=== PATIENT | female | born 1995 | race Caucasian/White ===

== ENCOUNTER 2019-06-25 16:25 | Inpatient (IN) | payer OTHER ==
[~2019-06-25] VITALS: Ht 152.4 cm; Wt 67.8 kg
--- NOTE | 2019-06-25 17:05 | NUR ---
PT PRESENTS TO ED BIBA WITH C/O OF RIGHT SIDED ABDOMINAL PAIN STARTING TODAY. PT STS SHE HAS HAD SIMILAR PAIN IN THE PAST AND WAS SEEN AT [facility] X1 MONTH AGO. PT STS PAIN STARTED A COUPLE HRS AFTER EATING FRIED CHICKEN AND HAVING 1 EPISODE OF DIARRHEA. PER EMS PT WAS FOUND AT HOME WITH PAIN 10/10 ACTING RESTLESS AND DIAPHORETIC DUE TO PAIN. PER EMS THEY GAVE PT 100MCG TOTAL OF FENTANYL AND PT "BEGAN TO LOOK BETTER" AND WAS ABLE TO ANSWER QUESTIONS. PT STS PT IS MOSTLY IN RUQ OF ABDOMEN AND RADIATES TO MID EPIGASTRIC AND BACK SIDE. PT DENIES FEVER, CHEST PAIN, OR DIZZINESS. PT AAOX4, RESP E/U, NO ACUTE DISTRESS NOTED AT THIS TIME. PT VSS, ON FULL CM, WILL CONTINUE TO MONITOR.
[2019-06-25 17:16] LABS: BASOPHIL % 0.9 % (0-2); PLATELET COUNT 307 x10^3mcL (130-400); RED CELL DISTRIBUTION WIDTH 13.4 % (11.5-14.5)
[2019-06-25 17:21] LABS: CALCIUM 8.1 mg/dL (8.5-10.1); CARBON DIOXIDE 29.9 mmol/L (21-32); CHLORIDE SERUM 107 mmol/L (98-107); CREATININE SERUM 0.7 mg/dL (0.6-1.0); GFR1 > 60 mL/min; GLUCOSE SERUM 103 mg/dL (74-106); POTASSIUM SERUM 3.9 mmol/L (3.5-5.1); SODIUM SERUM 145 mmol/L (136-145)
[2019-06-25 17:28] LABS: ALBUMIN 3.6 g/dL (3.4-5.0); ALKALINE PHOSPHATASE 132 U/L (46-116); ALT/SGPT 41 U/L (14-59); AST/SGOT 85 U/L (15-37); BILIRUBIN DIRECT 0.17 mg/dL (0.0-0.2); BILIRUBIN TOTAL 0.3 mg/dL (0.20-1.00); LIPASE 122 IU/L (73-393); TOTAL PROTEIN, SERUM 7.6 g/dL (6.4-8.2)
--- NOTE | 2019-06-25 17:40 | NUR ---
ULTRA SOUND AT BEDSIDE.
--- NOTE | 2019-06-25 19:05 | NUR ---
REPORT GIVEN TO ZAFAR PATEL TO ASSUME CARE OF PT.
--- NOTE | 2019-06-25 19:19 | NUR ---
PT MEDICATED PER EMAR. PT VITALS ARE STABLE PT STATES THAT HER PAIN DECREASED FROM A 6/10 TO A 0/10 AFTER SHE RECIEVED HER PAIN MEDICATION. PT IS A/O X4. NO ACUTE DISTRESS NOTED. FAMILY AT BEDSIDE.
--- NOTE | 2019-06-25 20:32 | NUR ---
TRISTIN FROM [employer] CALLED TO INFORM ME THAT PT WILL RECIEVE US AT 0800 TOMORROW MORNING. SHE STATES THAT PT NEEDS TO BE KEPT NPO AND NO OPIOIDS AFTER MIDNIGHT. WILL PASS ON TO MED/SURG NURSE.
--- NOTE | 2019-06-25 21:27 | NUR ---
REPORT GIVEN TO TAMMY STEPHEN TO ASSUME CARE OF PT. TAMMY MADE AWARE PT NEED TO BE KEPT NPO AND NO OPIOIDS PAST MIDNIGHT TONIGHT FOR HER ULTRA SOUND AT 0800 TOMORROW MORNING.
--- NOTE | 2019-06-25 21:35 | NUR ---
RECEIVED PT FROM ED VIA WHEELCHAIR, CAME IN DUE TO ABDOMINAL PAIN. AAOX4. DENIES HEADACHE/DIZZINESS. NO SOB NOTED, LUNG SOUNDS CTA. DENIES CHEST PAIN/PRESSURE. DENIES ABDOMINAL PAIN AT THIS TIME. C/O NAUSEA. IV SITE PATENT AND INTACT. SIDE RAILS UPX2. CALL LIGHT ON REACH. ENDORSED TO PRIMARY NURSE TAMMY FOR CONTINUITY OF CARE
[2019-06-25 21:44] VITALS: BP 110/74
[2019-06-25 21:57] VITALS: Ht 152.4 cm; Wt 67.8 kg
--- NOTE | 2019-06-25 22:28 | NUR ---
RECEVED PT FROM [facility] , PT'S ON BED AAOX4 DENY NAUSEA/ABD PAIN AT THE MOMENT , ABD SOFT NON-TENDER TO TOUCH BS ACTIVE X4, LUNG SOUNDS CTA , HL TO RIGHT HAND INTACT FLUSHING WELL . CALL LIGHT WITHIN PT'S REACH , WILL CON'T TO MONITOR AND ASSIST [PT WITH CARE .
[2019-06-26 05:03] VITALS: BP 113/61
--- NOTE | 2019-06-26 06:02 | NUR ---
POST ZOFRAN PT DENY N/V AT THE MOMENT , PIV INTACT INFUSING WELL .
--- NOTE | 2019-06-26 06:22 | NUR ---
I HAVE REVIEWED THE DATA COLLECTION BY DIRECTOR MEDICAL SURGICAL (NAME):TAMMY GOTTLIEB ENTERED ON (DATE/TIME): I CONCUR WITH THE DATA AND ANY EXCEPTIONS OR COMMENTS ARE LISTED BELOW:
[2019-06-26 07:27] LABS: BASOPHIL % 0.2 % (0-2); PLATELET COUNT 270 x10^3mcL (130-400); RED CELL DISTRIBUTION WIDTH 13.6 % (11.5-14.5)
--- NOTE | 2019-06-26 07:44 | NUR ---
PT LYING IN BED A/A/ OX4. RESPIRATIONS EVEN/ UNLABORED, ON RA. PT NPO IVF RUNNING AT 80ML/HR. NO REDNESS/ SWELLING AT IV SITE. BED IN LOW POSITION, CALL LIGHT IN REACH, SIDE RAILS UP X 2. WILL CONTINUE TO MONITOR
[2019-06-26 07:49] LABS: ALBUMIN 3.4 g/dL (3.4-5.0); ALKALINE PHOSPHATASE 232 U/L (46-116); ALT/SGPT 930 U/L (14-59); BILIRUBIN TOTAL 2.26 mg/dL (0.20-1.00); CARBON DIOXIDE 27.3 mmol/L (21-32); CHLORIDE SERUM 106 mmol/L (98-107); CREATININE SERUM 0.6 mg/dL (0.6-1.0); GFR1 > 60 mL/min; GLUCOSE SERUM 78 mg/dL (74-106); MAGNESIUM 2.1 mg/dL (1.8-2.4); POTASSIUM SERUM 3.7 mmol/L (3.5-5.1); SODIUM SERUM 144 mmol/L (136-145); TOTAL PROTEIN, SERUM 7.7 g/dL (6.4-8.2)
[2019-06-26 07:52] LABS: AST/SGOT 1581 U/L (15-37)
--- NOTE | 2019-06-26 08:06 | NUR ---
PT WENT DOWN FOR HIDA SCAN BY W/C, IN NO ACUTE DISTRESS
--- NOTE | 2019-06-26 10:25 | NUR ---
PT RETURNED TO FLOOR, IN NO ACUTE DISTRESS. NO CO PAIN. BREATHING EQUAL/ UNLABORED, ON RA, IVF RUNNING AT 80ML/HR. C/O MILD ACID REFLUX, ENCOURAGED TO SIT UP. HIDA SCAN ONGOING, PT VERBALIZED UNDERSTANDING. BED IN LOW POSITION, CALL LIGHT IN REACH, WILL CONTINUE TO MONITOR
--- NOTE | 2019-06-26 11:41 | NUR ---
PT SITTING UP IN BED, AWAKE/ALERT/ OX4. BREATHING EQUAL UNLABORED. NO ACUTE DISTRESS NOTED. IVF RUNNING AT 80ML/HR. NO REDNESS/SWELLING AT IV SITE. BED IN LOW POSITION, CALL LIGHT IN REACH. WILL CONTINUE TO MONITOR
--- NOTE | 2019-06-26 12:32 | NUR ---
CALLED AND REPORTED TO FOR HIDA SCAN RESULT. PER DR. MELO, SHE WILL SCHEDULE FOR SURGERY EITHER TODAY OR TOMORROW. WILL CONT. TO KEEP PATIENT NPO.
--- NOTE | 2019-06-26 15:01 | NUR ---
PT LYING IN BED, EYES CLOSED. AOUSABLE TO VOICE. BREATHING EQUAL/ UNLABORED ON RA. IVF RUNNING AT 80ML/HR. BED IN LOW POSITION, CALL LIGHT IN REACH, FAMILY AT BEDSIDE. WILL CONTINUE TO MONITOR
--- NOTE | 2019-06-26 16:20 | NUR ---
PT WENT DOWN TO OR FOR SURGERY. PT IN NO ACUTE DISTRESS AT THIS TIME
[2019-06-26 16:23] VITALS: BP 118/71
--- NOTE | 2019-06-26 18:43 | NUR ---
NURSING CO-SIGN THE DOCUMENTATION ENTERED BY THE RN HAS BEEN REVIEWED. REVIEWED/CO-SIGNED BY: Katheryn Ortiz DOCUMENTATION DONE BY: IKER FAULKNER
[2019-06-26 18:55] VITALS: BP 123/60
--- NOTE | 2019-06-26 19:00 | NUR ---
PT RETURNED TO FLOOR FROM SURGERY. PT DROWSY/ AROUSABLE TO VOICE. VSS. C/O PAIN 2/10 TO ABD AND MILD NAUSEA. PT HAS 4 ABD INCISIONS WITH BAINDAIDS AND 1 PAUL DRAIN TO R SIDE OF ABD/ SMALL AMOUNT OF SANGUINOUS DRAINAGE. BREATHING EQUAL/ UNLABORED ON 2LPM VIA NC. IVF RUNNING AT 80ML/HR. NO REDNESS/ SWELLING AT IV SITE. FAMILY AT BED SIDE, CALL LIGHT IN REACH, BED IN LOW POSITION. WILL ENDORSE TO ON COMING NURSE
[2019-06-26 19:34] VITALS: BP 123/75
--- NOTE | 2019-06-26 20:00 | NUR ---
RECEIVED PT IN BED, A/OX4. RESP. EVEN AND UNLABORED. LUNG SOUNDS CLEAR 02 AT 2L/MIN VIA NC, SAT. 98%. NO ACUTE DISTRESS NOTED. AFEBRILE AND VITAL SIGNS STABLE. DENIES CHEST PAIN OR DISCOMFORT AT THIS TIME. ABD. SOFT, NON DISTENDED, ABD. INCISIONS WITH BANDAIDS, DRY AND INTACT. PAUL DRAIN INTACT AND DRAINING BLOODY OUTPUT. IVF, NS AT 80ML/HR, INTACT AND INFUSING VIA RT HAND, SITE CLEAR. CALL LIGHT WITHIN REACH.WILL CONTINUE TO MONITOR.
--- NOTE | 2019-06-26 20:15 | NUR ---
COMPLAINED OF NAUSEA, MEDICATED WITH ZOFRAN IV ORDERED. WILL CONTINUE TO MONITOR.
--- NOTE | 2019-06-26 23:13 | NUR ---
COMPLAINED OF ABD. PAIN, 6/10, MEDICATED WITH MORPHINE SULFATE ORDERED. WILL CONTINUE TO MONITOR.
--- NOTE | 2019-06-27 00:17 | NUR ---
PT STATES PAIN RELIEF. WILL CONTINUE TO MONITOR.
--- NOTE | 2019-06-27 02:29 | NUR ---
RESTING QUIETLY, WITH EYES CLOSED, APPEARS ASLEEP, EASILY AROUSABLE . RESP. EVEN AND UNLABORED. NO ACUTE DISTRESS NOTED. IVF INTACT AND INFUSING WELL, SITE CLEAR. CALL LIGHT WITHIN REACH. WILL CONTINUE TO MONITOR.
--- NOTE | 2019-06-27 04:30 | NUR ---
COMPLAINED OF ABD. INCISION SITES PAIN, 04/18, REQUESTING PAIN MED, MEDICATED WITH MORPHINE SULFATE IV ORDERED. WILL CONTINUE TO MONITOR.
[2019-06-27 05:18] VITALS: BP 111/67
--- NOTE | 2019-06-27 06:10 | NUR ---
AFEBRILE AND VITAL SIGNS STABLE. RESP. EVEN AND UNLABORED. ON ROOM AIR AT THIS TIME.NO ACUTE DISTRESS NOTED. PT STATES PAIN RELIEF AT THIS TIME. ABD. INCISION SITES WITH BANDAIDS, DRY AND INTACT. PAUL DRAIN INTACT AND PATENT. 20MLS OUPUT NOTED. AMBULATING TO THE BATHROOM, VOIDING FREELY. NO BM NOTED. KPET COMFORTABLE.IVF INTACT AND INFUSING WELL, SITE CLEAR. NPO SINCE MN MAINTAINED FOR POSSIBLE PROCEDURE TODAY. CALL LIGHT WITHIN REACH. WILL CONTINUE TO MONITOR.
[2019-06-27 07:26] LABS: BASOPHIL % 0.1 % (0-2); PLATELET COUNT 249 x10^3mcL (130-400); RED CELL DISTRIBUTION WIDTH 13.4 % (11.5-14.5)
[2019-06-27 07:39] LABS: ALKALINE PHOSPHATASE 320 U/L (46-116); AST/SGOT 676 U/L (15-37); BILIRUBIN TOTAL 5.6 mg/dL (0.20-1.00); CALCIUM 8.4 mg/dL (8.5-10.1); CHLORIDE SERUM 104 mmol/L (98-107); CREATININE SERUM 0.6 mg/dL (0.6-1.0); GFR1 > 60 mL/min; GLUCOSE SERUM 88 mg/dL (74-106); LIPASE 85 IU/L (73-393); POTASSIUM SERUM 4.7 mmol/L (3.5-5.1); SODIUM SERUM 138 mmol/L (136-145); TOTAL PROTEIN, SERUM 6.7 g/dL (6.4-8.2)
[2019-06-27 07:42] LABS: ALT/SGPT 1065 U/L (14-59)
--- NOTE | 2019-06-27 08:25 | NUR ---
At 0710, Recieved patient from shift superintendent caustic cresylate nurse. Awake, Alert, and Oriented. IV infusing N/S at 80 ml/hour. At 0730 is when she complained of abdominal pain and nausea. Medicated with zofran as per emar. Will medicate for pain in one hour. Abdominal dressings dry and intact. PAUL drain- patent. Seen by Dr. Mazariegos. Dr. Cardenas to follow up for further treatment. Patient remains NPO.
[2019-06-27 08:53] VITALS: BP 115/70
--- NOTE | 2019-06-27 10:36 | NUR ---
AT 0930 - REPORTS SOME RELIEF OF ABDOMINAL PAIN AFTER RECEIVING MORPHINE. STIL SOME NAUSEA. 1020 - CONSENT FOR ERCP SIGNED BY PATIENT. REPORT GEIVEN TO RN IN SURGERY. PATIENT WAS SEEN BY DR OSPINA. AT 1035 - TAKEN TO SURGERY FOR ERCP.
--- NOTE | 2019-06-27 12:27 | NUR ---
PATIENT RETURNED FROM OR AT 12:20 FOLLOWING ERCP, SPHINCTOROCTOMY, AND BALLOON SWEEP WITH STONE EXTRACTION UNDER GENERAL ANESTHESIA. PATIENT IS AWAKE, ALERT, AND ORIENTED. VITAL SIGNS WITHIN NORMAL LIMITS. OXYGEN SATURATION 94% ON ROOM AIR. PATIENT RECIEVED ZOFRAN IN RECOVERY ROOM FOR COMPLAINT OF NAUSEA. MAY COMMENCE FULL LIQUID DIET ORDERED.
[2019-06-27 12:30] VITALS: BP 111/71
--- NOTE | 2019-06-27 15:59 | NUR ---
PATIENT RESTING QUIETLY. NO C/O PAIN AT THIS TIME. IV INFUSING LACTATED RINGERS AT 125 ML/HR. SPOUSE AT BEDSIDE WITH PATIENT'S BABY IN ROOM ALSO.
[2019-06-27 16:28] VITALS: BP 113/68
--- NOTE | 2019-06-27 17:51 | NUR ---
Vital signs are stable, patient is afebril, patient has been provided with incentive spirometer and instructed on use by RT, encouraged to use every hour. Patient encouraged to ambulate, has been ambulating to bathroom only, but encouraged to walk in hallway. No further complaints of nausea. Abdominal dressings remain dry. PAUL drain is draining serosanganous fluid with a 20 ml output this shift. Will endorse care to night nurse.
--- NOTE | 2019-06-27 19:30 | NUR ---
PT IS A/O x4. ON MED SURG. DENIES ANY CHEST PAIN OR PRESSURE. PULSES ARE PERSENT. NO EDEMA NOTED. LUNGS CLEAR IN ALL FEILD. ON RA, DENIES ANY SOB. EQAUL CHEST RISE AND FALL. NO SIGN OF RESP DISTRESS. BOWEL SOUNDS ARE PRESENT. ABD INCISIONS FROM [employer] [place] YESTERDAY ARE CLEAN AND INTACT. PAUL DRAIN NOTED ON R SIDE OF THE ABD. SUCTION IN PLACE WITH NO DRAINAGE NOTED. PT COMPLAINS OF NAUSEA, WILL GIVE MED PER EMAR.DENIES ANY PAIN AT THIS TIME. IV ON RH IS INTACT AND PATENT. NO SIGN OF INFILTRATION OR INFLAMATION NOTED. FAMILY AT BEDSIDE. BED IS AT LOWEST SETTING. CALL LIGHT WITHIN REACH. WILL CONTINUE TO MONITOR.
[2019-06-27 20:29] VITALS: BP 108/61
--- NOTE | 2019-06-28 02:32 | NUR ---
PT IS RESTING IN BED WITH BOTH EYES CLOSED. BREATHING EVEN AND UNLABORED. NO SIGN OF DISTRESS NOTED. IV INTACT AND PATENT. BED IS AT LOWEST SETTING. CALL LIGHT WITHIN REACH. WILL CONTINUE TO MONTIOR.
[2019-06-28 05:07] VITALS: BP 113/66
--- NOTE | 2019-06-28 06:13 | NUR ---
PT IS RESTING IN BED WITH BOTH EYES CLOSED. NO SIGN OF DISTRESS NOTED. NO ACUTE EVENT OCCURED AT NIGHT. BED IS AT LOWEST SETTING. CALL LIGHT WITHIN REACH. WILL ENDORSE TO AM NURSE.
--- NOTE | 2019-06-28 07:58 | NUR ---
Recieved patient from night nurse. Patient was observed sleeping. Patient not currently complaining of any pain or nausea. IV infusing LR at 125 ml/hour. Continuing to monitor patient.
[2019-06-28 08:24] VITALS: BP 106/71
--- NOTE | 2019-06-28 10:56 | NUR ---
AT 0840 -SPOKE WITH PATIENT ABOUT IMPORTANCE OF AMBULATION, USE OF INSNETIVE SPIROMETER AND SCDS IN PREVENTION OF POST-OP COMPLICATIONS. PATIENT TAKING PO LIQUIDS. NO VOMITING TODAY. DECLINED PAIN MEDICATION AT THIS TIME.
[2019-06-28 11:38] LABS: ALKALINE PHOSPHATASE 291 U/L (46-116); ALT/SGPT 627 U/L (14-59); AST/SGOT 171 U/L (15-37); BILIRUBIN TOTAL 1.24 mg/dL (0.20-1.00); CARBON DIOXIDE 29.6 mmol/L (21-32); CHLORIDE SERUM 105 mmol/L (98-107); CREATININE SERUM 0.6 mg/dL (0.6-1.0); GFR1 > 60 mL/min; GLUCOSE SERUM 86 mg/dL (74-106); POTASSIUM SERUM 3.4 mmol/L (3.5-5.1); SODIUM SERUM 142 mmol/L (136-145); TOTAL PROTEIN, SERUM 6.4 g/dL (6.4-8.2)
[2019-06-28 11:41] LABS: ALBUMIN 2.8 g/dL (3.4-5.0)
[2019-06-28 11:56] LABS: PLATELET COUNT 240 x10^3mcL (130-400); RED CELL DISTRIBUTION WIDTH 13.6 % (11.5-14.5)
[2019-06-28 14:08] VITALS: BP 106/71
--- NOTE | 2019-06-28 14:32 | NUR ---
AT 1340 - PATIENT AMBULATED IN HALLWAY. TOLERATED WELL. NO C/O PAIN OR NAUSEA. AT 1350 - PAUL DRAIN REMOVED INTACT AFTER REMOVAL OF HOLDING SUTURE. DRESSINGS TO INCISIONS CHANGED. PHOTO DOCUMENTED. PATIENT INSTRUCTED IN CARE OF INCISIONS. AT 1400 - RECEIVED DISCHARGED ORDER. IV INFUSION DISCONTINUED AND IV CATHETER REMOVED INTACT.
[2019-06-28] MEDS ORDERED: NORCO1 TA2 PO (14:36)
[2019-06-28] MEDS ORDERED: KETOROLAC TROME10 MG PO (14:36)
--- NOTE | 2019-06-28 15:24 | NUR ---
AT 1500 - PRINTED DISCHARGE INSTRUCTIONS GIVEN AND EXPLAPINED TO PATIENT. PRESCRIPTION PROVIDED. AT 1520 - DISCHARGED HOME WITH SISTER. TAKEN TO DISCHARGE OFFICE IN WHEELCHAIR BY FERNANDO.
== END 2019-06-28 15:22 | disposition home or self-care (01) | DRG 419 ==
LOC: ED 16:25 → MU 20:33
PROVIDERS: Internal Medicine; Internal Medicine Gastroenterology; Student in an Organized Health Care Education/Training Program; Surgery; ADMIT Internal Medicine Pulmonary Disease
PROC: BF10YZZ Fluoroscopy of Bile Ducts using Other Contrast (ICD-10-PCS; 2019-06-26)
PROC: 0FT44ZZ Resection of Gallbladder, Percutaneous Endoscopic Approach (ICD-10-PCS; principal; 2019-06-26 15:30)
PROC: BF10YZZ Fluoroscopy of Bile Ducts using Other Contrast (ICD-10-PCS; 2019-06-27)
PROC: 0FC98ZZ Extirpation of Matter from Common Bile Duct, Via Natural or Artificial Opening Endoscopic (ICD-10-PCS; 2019-06-27 11:00)
DX: K80.64 Calculus of gallbladder and bile duct with chronic cholecystitis without obstruction (principal); E66.9 Obesity, unspecified; Z68.30 Body mass index [BMI] 30.0-30.9, adult
CPT/HCPCS: 43262; 78226; 94150; A9537; C1769; C1887; G0378; J0330; J0694; J1170; J1610; J2001; J2250; J2270; J2405; J2543; J2704; J2710; J3010; J3490; J7030; J7120; Q9967